=== PATIENT | female | born 1975 | race Caucasian/White ===

== ENCOUNTER 2018-03-11 17:38 | Emergency (ER) | payer OTHER ==
[~2018-03-11] VITALS: Ht 154.9 cm; Wt 82.1 kg
[2018-03-11 17:50] VITALS: Ht 154.9 cm; Wt 82.1 kg
[2018-03-11 18:47] VITALS: BP 154/92
== END 2018-03-11 18:47 | disposition home or self-care (01) ==
LOC: ED 17:38
DX: F43.20 Adjustment disorder, unspecified (principal); R07.89 Other chest pain; J45.909 Unspecified asthma, uncomplicated; F41.9 Anxiety disorder, unspecified

== ENCOUNTER 2018-12-08 01:26 | Emergency (ER) | payer OTHER ==
[~2018-12-08] VITALS: Ht 157.5 cm; Wt 81.6 kg
[2018-12-08 01:30] VITALS: Ht 157.5 cm; Wt 81.6 kg
[2018-12-08 03:15] VITALS: BP 127/81
== END 2018-12-08 03:15 | disposition home or self-care (01) ==
LOC: ED 01:26
DX: J45.901 Unspecified asthma with (acute) exacerbation (principal); F41.9 Anxiety disorder, unspecified; G47.00 Insomnia, unspecified
CPT/HCPCS: J7613; J7644

== ENCOUNTER 2019-10-18 12:19 | Emergency (ER) | payer OTHER ==
[~2019-10-18] VITALS: Ht 152.4 cm; Wt 78.9 kg
[2019-10-18 12:24] VITALS: Ht 152.4 cm; Wt 78.9 kg
[2019-10-18 13:30] LABS: BASOPHIL % 0.9 % (0-2); RED CELL DISTRIBUTION WIDTH 12.9 % (11.5-14.5)
[2019-10-18 13:40] LABS: PLATELET COUNT 442 x10^3mcL (130-400)
[2019-10-18 13:44] LABS: ALBUMIN 3.2 g/dL (3.4-5.0); ALKALINE PHOSPHATASE 70 U/L (46-116); ALT/SGPT 34 U/L (14-59); AST/SGOT 12 U/L (15-37); BILIRUBIN TOTAL 0.79 mg/dL (0.20-1.00); CARBON DIOXIDE 25.2 mmol/L (21-32); CHLORIDE SERUM 101 mmol/L (98-107); CHOLESTEROL 192 mg/dL (<200); CREATININE SERUM 0.9 mg/dL (0.6-1.0); GFR1 > 60 mL/min; GLUCOSE SERUM 114 mg/dL (74-106); HDL CHOLESTEROL 58 mg/dL (40-60); LIPASE 135 IU/L (73-393); POTASSIUM SERUM 3.3 mmol/L (3.5-5.1); SODIUM SERUM 136 mmol/L (136-145); T4(THYROXINE) 8.9 ug/dL (4.7-13.3)
[2019-10-18 14:19] LABS: UA SPECIFIC GRAVITY <=1.005 (1.005-1.035); microscopic required? YES; urine erythrocyte 2+ (NEGATIVE)
[2019-10-18 14:30] LABS: AMPHETAMINE QUAL UR NONE DETECTED (See below)
[2019-10-18 15:30] VITALS: BP 126/76
== END 2019-10-18 15:30 | disposition home or self-care (01) ==
LOC: ED 12:19
PROVIDERS: Emergency Medicine
DX: F41.9 Anxiety disorder, unspecified (principal); R51 Headache; E66.9 Obesity, unspecified; Z68.33 Body mass index [BMI] 33.0-33.9, adult; J45.909 Unspecified asthma, uncomplicated; Z90.49 Acquired absence of other specified parts of digestive tract; Z98.890 Other specified postprocedural states
CPT/HCPCS: 36415; 83880